=== PATIENT | male | born 1990 | race Caucasian/White ===

== ENCOUNTER 2016-11-03 20:18 | Emergency (ER) | payer SELFPAY ==
[2016-11-03 20:37] VITALS: BP 149/104
--- NOTE | 2016-11-03 20:56 | EDM.PDOCBH ---
ED HPI GENERAL MEDICAL PROBLEM - General Chief Complaint: Behavioral/Psych Stated Complaint: ANXIETY Time Seen by Provider: 11/03/16 20:30 Source of Information: Reports: Patient, RN Notes Reviewed History Limitations: Reports: No Limitations - History of Present Illness INITIAL COMMENTS - FREE TEXT/NARRATIVE: The patient states that he has been feeling "down in the dumps" and "a mess". He states that he and his girlfriend moved into [place] 09/14/2016, and that they had been homeless prior to that. He states that he and his girlfriend broke up yesterday, and he does not know where he or she are going to go. Despite this, the patient is adamant that his feelings are not situational. He expressly denies feeling suicidal or homicidal, and denies having attempted to harm himself or others. The patient has difficulty expressing specifically what he is feeling. It is likely that he has a decreased appetite, stating that he only ate a single ramen since yesterday, despite access to food. He was able to go to work today without any difficulty. He denies prior similar symptoms. He denies prior psychiatric diagnoses or treatment. The patient acknowledges that he smokes marijuana daily. The patient does not have a PCP. - Related Data Allergies Allergy/AdvReac Type Severity Reaction Status Date / Time No Known Allergies Allergy Verified 11/03/16 20:37 Home Meds: Home Meds . [No Known Home Meds] 11/03/16 [History] Past Medical History - Past Surgical History Musculoskeletal Surgical History: Reports: ORIF (left leg) Social & Family History - Tobacco Use Smoking Status *Q: Current Every Day Smoker Years of Tobacco use: 9 Packs/Tins Daily: 1 - Caffeine Use Caffeine Use: Reports: Energy Drinks - Alcohol Use Alcohol Use History: Yes Date/Time of Last Drink Comment: None since May 2016 - Recreational Drug Use Recreational Drug Use: Yes Drug Use in Last 12 Months: Yes Recreational Drug Type: Reports: Marijuana/Hashish Recreational Drug Use Frequency: Daily - Living Situation & Occupation Living situation: Reports: Single, with Significant Other (Girlfriend) Occupation: Employed ([employer]) ED ROS GENERAL - Review of Systems Review Of Systems: See Below Constitutional: Reports: No Symptoms HEENT: Reports: No Symptoms Respiratory: Reports: No Symptoms Cardiovascular: Reports: No Symptoms Endocrine: Reports: No Symptoms GI/Abdominal: Reports: No Symptoms : Reports: No Symptoms Musculoskeletal: Reports: No Symptoms Skin: Reports: No Symptoms Neurological: Reports: No Symptoms Psychiatric: Reports: No Symptoms Hematologic/Lymphatic: Reports: No Symptoms Immunologic: Reports: No Symptoms ED EXAM, BEHAVIORAL HEALTH - Physical Exam Exam: See Below Exam Limited By: No Limitations General Appearance: Alert, WD/WN, No Apparent Distress Eye Exam: Bilateral Eye: Normal Inspection Ears: Normal External Exam, Hearing Grossly Normal Nose: Normal Inspection, No Blood Throat/Mouth: Normal Inspection, Normal Lips, Normal Voice, No Airway Compromise Head: Atraumatic, Normocephalic Neck: Normal Inspection, Full Range of Motion Respiratory/Chest: No Respiratory Distress, Lungs Clear, Normal Breath Sounds, No Accessory Muscle Use Cardiovascular: Normal Peripheral Pulses, Regular Rate, Rhythm, No Gallop, No JVD, No Murmur, No Rub GI/Abdominal: Normal Bowel Sounds, Soft, Non-Tender, No Organomegaly, No Distention, No Abnormal Bruit, No Mass (Male) Exam: Deferred Rectal (Males) Exam: Deferred Back Exam: Normal Inspection, Full Range of Motion, NT Extremities: Normal Inspection, Normal Range of Motion, No Pedal Edema, Normal Capillary Refill Neurological: Alert, Normal Cognition, No Motor/Sensory Deficits, Oriented x 3 Psychiatric: Depressed Mood, Flat Affect Skin Exam: Warm, Dry, Intact, Normal color, No rash COURSE, BEHAVIORAL HEALTH COMP - Course Vital Signs: Last Vital Signs Temp 36.5 C 11/03/16 20:30 Pulse 92 11/03/16 20:30 Resp 19 11/03/16 20:30 BP 149/104 H 11/03/16 20:30 Pulse Ox 100 11/03/16 20:30 Medical Clearance: 11/03/16 20:52 While the patient's presenting complaint was that of anxiety, he is not describing anxiety, rather, he appears to be describing depression. He states that he feels down in the dumps and is in "a mess". He is not suicidal nor homicidal, and has not made any attempts to harm himself. A psychiatric workup, therefore, is not indicated. The patient would likely benefit from being placed on an antidepressant. I will refer him to Dr. Hernandez, and recommend that he discontinue his daily use of marijuana. Departure - Departure Time of Disposition: 20:53 Disposition: Home, Self-Care 01 Condition: Good Clinical Impression: Depression - Discharge Information Referrals: Ansley Hernandez [Physician] - Forms: ED Department Discharge Additional Instructions: You were seen in the emergency room for feeling emotionally down. You are likely suffering from depression. We recommend you follow-up with Dr. Hernandez in the clinic at the next available appointment. We also recommend you consider discontinuing smoking marijuana. Marijuana may not cause depression, but if you have depression, it can make it worse. If any other problems, please do not hesitate to return to the ER.
== END 2016-11-03 21:05 | disposition home or self-care (01) ==
LOC: JD.ED 20:18
DX: F32.9 Major depressive disorder, single episode, unspecified (principal); F17.210 Nicotine dependence, cigarettes, uncomplicated
CPT/HCPCS: 99283